=== PATIENT | female | born 2000 | race Caucasian/White ===

== ENCOUNTER 2022-04-13 02:55 | Emergency (ER) | payer OTHER ==
[~2022-04-13] VITALS: Ht 170.2 cm; Wt 86.4 kg
[~2022-04-13 02:55] MED LIST: NOCURR
[2022-04-13 02:56] VITALS: BP 135/67
[2022-04-13] MEDS ORDERED: ACET-3385 PO (03:03)
[2022-04-13] MEDS ORDERED: KETOROLAC TROMETHAMINE 30 MG/ML VIAL IM ONE (03:45)
[2022-04-13] MEDS ORDERED: CYCL-448 PO (04:11)
== END 2022-04-13 04:20 | disposition home or self-care (01) ==
LOC: EMS 02:56
DX: M25.512 Pain in left shoulder (principal); M25.511 Pain in right shoulder
CPT/HCPCS: 99283; 96372; J1885